=== PATIENT | female | born 1970 | race Caucasian/White ===

== ENCOUNTER → 2022-08-26 | Outpatient (CLI) | payer OTHER ==
--- NOTE | 2022-08-26 10:32 | XR ---
EXAMINATION TYPE: XR hand complete LT DATE OF EXAM: 08/26/2022 COMPARISON: None HISTORY: Crush injury ring finger TECHNIQUE: 3 view left hand FINDINGS: No acute fracture or dislocation is evident. Joint spaces are preserved. There is mild soft tissue swelling over the ring finger. Follow up exams can be performed 7-10 days from acute trauma f or continued pain. IMPRESSION: 1. No acute osseous abnormality left hand. 2. Mild soft tissue swelling proximal left ring finger
== END | disposition home or self-care (01) ==
LOC: RADXRMAIN 09:31
PROVIDERS: ATTEND Emergency Medicine
DX: S60.042A Contusion of left ring finger without damage to nail, initial encounter (principal); M79.89 Other specified soft tissue disorders

== ENCOUNTER → 2022-09-01 | Outpatient (CLI) | payer OTHER ==
--- NOTE | 2022-09-01 15:41 | XR ---
EXAMINATION TYPE: XR finger LT DATE OF EXAM: 09/01/2022 Comparison: 08/26/2022 TECHNIQUE: 3 views coned down onto the left ring finger Clinical History: 52-year-old female [id number] Contusion Left ring finger Findings: Mild soft tissue swelling of the ring finger. No acute fracture, subluxation, or dislocation seen. Impression: Mild soft tissue swelling. No acute osseous abnormality seen.
== END | disposition home or self-care (01) ==
LOC: RADXRMAIN 15:14
PROVIDERS: ATTEND Emergency Medicine
DX: S60.042D Contusion of left ring finger without damage to nail, subsequent encounter (principal); X58.XXXD Exposure to other specified factors, subsequent encounter

== ENCOUNTER → 2022-09-21 | Outpatient (CLI) | payer OTHER ==
--- NOTE | 2022-09-21 17:15 | XR ---
EXAMINATION TYPE: XR finger LT DATE OF EXAM: 09/21/2022 COMPARISON: 09/01/2022 HISTORY: Pain crush injury TECHNIQUE: 3 view left index finger FINDINGS: No acute or subacute fractures identified. Mild diffuse joint space narrowing is present. T here is diffuse soft tissue swelling of the ring finger. IMPRESSION: 1. There appears to be persistent mild soft tissue swelling present. 2. Acute or subacute fracture is not identified.
== END | disposition home or self-care (01) ==
LOC: RADXRMAIN 15:51
PROVIDERS: ATTEND Emergency Medicine
DX: S60.042D Contusion of left ring finger without damage to nail, subsequent encounter (principal); M79.89 Other specified soft tissue disorders